=== PATIENT | male | born 1955 | race American Indian/Alaskan Native ===

== ENCOUNTER 2017-07-29 17:35 | Emergency (ER) | payer MEDICARE ==
[2017-07-29] MEDS ORDERED: ALUM-MAG HYDROX-SIMETH 200-200-20MG/5ML ONE (18:22)
[2017-07-29] MEDS ORDERED: ASPIRIN PO ONE (18:25)
[2017-07-29 19:20] LABS: BUN/Creatinine Ratio 21; Blood Urea Nitrogen 15 mg/dL (9-20); Calcium 8.4 mg/dL (8.4-10.2); Hemolysis Index 9
[2017-07-29 19:37] LABS: Basophils % (Auto) 0.7 % (0.0-1.8); Eosinophils # (Auto) 0.2 K/mm3 (0.0-0.4); Eosinophils % (Auto) 3.8 % (0.0-4.3); Hematocrit 38.2 % (35.5-45.6); Hemoglobin 12.5 gm/dl (11.8-15.2); Lymphocytes # (Auto) 0.7 K/mm3 (1.2-5.4); Lymphocytes % (Auto) 15.5 % (13.4-35.0); Mean Corpuscular HGB Conc 33 % (32-34); Mean Corpuscular Hemoglobin 33 pg (28-32); Mean Corpuscular Volume 100 fl (84-94); Monocytes # (Auto) 0.6 K/mm3 (0.0-0.8); Monocytes % (Auto) 12.8 % (0.0-7.3); Platelet Count 247 K/mm3 (140-440); Red Blood Count 3.83 M/mm3 (3.65-5.03); Red Cell Distribution Width 17.7 % (13.2-15.2)
[2017-07-29 19:45] LABS: Creatine Kinase MB 1.5 ng/mL (0.0-4.0)
--- NOTE | 2017-07-29 19:52 | XRay Report ---
FINAL REPORT EXAM: XR CHEST 1V AP HISTORY: cp TECHNIQUE: Frontal chest x-ray Comparison: None FINDINGS: The hemithorax is distorted, question pectus deformity. Heart size is normal. The aortic arch is aneurysmal measuring at least 5 centimeters. Pulmonary arteries are prominent bilaterally. Lungs are mildly hyperlucent with flattened hemidiaphragms and hyperexpanded compatible with emphysema. There are no focal infiltrates. Costophrenic angles are sharp laterally. There is no pneumothorax. There is a clip projecting over the right lower neck. IMPRESSION: Emphysema. Aortic aneurysm incompletely assessed. Prominent pulmonary arteries. No definite pneumonia.
[2017-07-29] MEDS ORDERED: BENADRYL PO ONE (19:53)
[2017-07-29] MEDS ORDERED: TESSALON PERLES PO ONE (19:53)
[2017-07-29] MEDS ORDERED: ZITHROMAX PO ONE (20:00)
--- NOTE | 2017-07-29 20:35 | Emergency Department Report ---
ED Chest Pain HPI - General Chief Complaint: Chest Pain Stated Complaint: CHEST PAIN Source: patient, EMS Mode of arrival: Stretcher Limitations: No Limitations - History of Present Illness Initial Comments: 61-year-old male with a past medical history hypertension, depression, schizophrenia, and polysubstance abuse presents to the hospital with complaints of cough and cold symptoms and chest pain. PT has had a cough for the past 2-3 days productive of yellow sputum. Patient has been at [facility] 1 week for substance abuse and is upset that he has been treated properly for his cold symptoms. He complains of pain going across his chest that started last night. Pain was aching, constant, worse with cough. Pain currently recessed intensity. Patient denies shortness of breath. Unsure if he's had a fever. Patient reports that he had a stress test 6 months ago was to his knowledge was okay. He was not informed that he had a heart attack and did not require a cardiac cath at that time. He has chronic intermittent right leg edema secondary to previous right leg fracture. Patient presents with a Doppler report of the right lower extremity that was performed yesterday that was negative for acute DVT. Patient presents with a sitter but he is not a 1013 Severity scale (0 -10): 0 - Related Data Previous Rx's Medication Instructions Recorded Last Taken Type Ibuprofen [Motrin] 800 mg PO Q8HR PRN #30 tablet 07/29/17 Unknown Rx Sodium Chloride [Saline Nasal 1 - 2 sprays NS PRN PRN #1 bottle 07/29/17 Unknown Rx [place]] diphenhydrAMINE [Benadryl CAP] 25 mg PO Q6HR PRN #30 capsule 07/29/17 Unknown Rx guaiFENesin/DEXTROMETHORPHAN 1 each PO BID #20 tab.er.12h 07/29/17 Unknown Rx [Mucinex Dm ER 1,200-60 mg Tab] Allergies Allergy/AdvReac Type Severity Reaction Status Date / Time No Known Allergies Allergy Unverified 07/29/17 18:24 Heart Score - HEART Score History: Slightly suspicious EKG: Non-specific Age: 45-65 Risk factors: 1-2 risk factors Troponin: < normal limit HEART Score: 3 ED Review of Systems ROS: Stated complaint: CHEST PAIN Other details as noted in HPI Comment: All other systems reviewed and negative Other: Constitutional: No fevers chills Eyes: No eye pain visual changes ENT: No ear pain or throat pain Neck: Denies pain Respiratory:as per hpi Cardiovascular: Denies palpitations, syncope GI: Denies abdominal pain, nausea, vomiting, diarrhea : Denies dysuria, urinary frequency, or urgency Musculoskeletal: Denies back pain, joint swelling Skin: Denies rash, lesions, erythema Neurologic: Denies headache, numbness, weakness ED Past Medical Hx - Past Medical History Previous Medical History?: Yes Hx Hypertension: Yes Hx Psychiatric Treatment: Yes (depression, polysubstance abuse, SI) - Surgical History Past Surgical History?: Yes Additional Surgical History: RLE fracture - Social History Smoking Status: Current Every Day Smoker Substance Use Type: Alcohol, Cocaine - Medications Home Medications: Home Medications Medication Instructions Recorded Confirmed Last Taken Type Ibuprofen [Motrin] 800 mg PO Q8HR PRN #30 tablet 07/29/17 Unknown Rx Sodium Chloride [Saline Nasal 1 - 2 sprays NS PRN PRN #1 bottle 07/29/17 Unknown Rx [place]] diphenhydrAMINE [Benadryl CAP] 25 mg PO Q6HR PRN #30 capsule 07/29/17 Unknown Rx guaiFENesin/DEXTROMETHORPHAN 1 each PO BID #20 tab.er.12h 07/29/17 Unknown Rx [Mucinex Dm ER 1,200-60 mg Tab] ED Physical Exam - General Limitations: No Limitations - Other Other exam information: General: No limitations, patient is alert in no acute distress Head exam: Atraumatic, normocephalic Eyes exam: Normal appearance, pupils equal reactive to light, extraocular movements intact ENT: Moist mucous membrane, normal oropharynx Neck exam: Normal inspection Respiratory exam: Clear to auscultation bilateral, no wheezes, rales, crackles Cardiovascular: Normal rate and rhythm, chest wall nontender Abdomen: Soft, nondistended, and nontender, with normal bowel sounds, no rebound, or guarding Extremity: Right lower leg edema and warmth without erythema greater than the left. No calf tenderness Back: Normal Inspection, full range of motion, no tenderness Neurologic: Alert, oriented x3, cranial nerves intact, no motor or sensory deficit Psychiatric: normal affect, normal mood Skin: Warm, dry, intact ED Course Vital Signs 07/29/17 07/29/17 07/29/17 18:17 18:57 19:49 Temperature 99 F Pulse Rate 86 81 Respiratory 16 16 18 Rate Blood Pressure 127/84 Blood Pressure 120/81 [Left] O2 Sat by Pulse 98 97 Oximetry - Reevaluation(s) Reevaluation #1: 07/29/17 22:[address] scan Patient refused repeat cardiac enzyme redraw EVA score - Eva Score Age > 65: (0) No Aspirin use within the Past 7 Days: (0) No 3 or more CAD Risk Factors: (0) No 2 or more Angina events in past 24 hrs: (1) Yes Known CAD with more than 50% Stenosis: (0) No Elevated Cardiac Markers: (0) No ST Deviation Greater than 0.5mm: (0) No EVA Score: 1 ED Medical Decision Making - Lab Data Result diagrams: 07/29/17 19:02 07/29/17 18:50 Lab Results 07/29/17 07/29/17 07/29/17 Range/Units 18:50 18:50 19:02 WBC 4.4 L (4.5-11.0) K/mm3 RBC 3.83 (3.65-5.03) M/mm3 Hgb 12.5 (11.8-15.2) gm/dl Hct 38.2 (35.5-45.6) % MCV 100 H (84-94) fl MCH 33 H (28-32) pg MCHC 33 (32-34) % RDW 17.7 H (13.2-15.2) % Plt Count 247 (140-440) K/mm3 Lymph % (Auto) 15.5 (13.4-35.0) % [place] % (Auto) 12.8 H (0.0-7.3) % Eos % (Auto) 3.8 (0.0-4.3) % Baso % (Auto) 0.7 (0.0-1.8) % Lymph # 0.7 L (1.2-5.4) K/mm3 [place] # 0.6 (0.0-0.8) K/mm3 Eos # 0.2 (0.0-0.4) K/mm3 Baso # 0.0 (0.0-0.1) K/mm3 Seg Neutrophils % 67.2 (40.0-70.0) % Seg Neutrophils # 2.9 (1.8-7.7) K/mm3 Sodium 139 (137-145) mmol/L Potassium 4.1 (3.6-5.0) mmol/L Chloride 101.7 (98-107) mmol/L Carbon Dioxide 24 (22-30) mmol/L Anion Gap 17 mmol/L BUN 15 (9-20) mg/dL Creatinine 0.7 L (0.8-1.5) mg/dL Estimated GFR > 60 ml/min BUN/Creatinine Ratio 21 % Glucose 103 H (75-100) mg/dL Calcium 8.4 (8.4-10.2) mg/dL Total Creatine Kinase 91 (55-170) units/L CK-MB (CK-2) 1.5 (0.0-4.0) ng/mL CK-MB (CK-2) Rel Index 1.6 (0-4) Troponin T < 0.010 (0.00-0.029) ng/mL Urine Opiates Screen Urine Methadone Screen Ur Barbiturates Screen Ur Phencyclidine Scrn Ur Amphetamines Screen U Benzodiazepines Scrn Urine Cocaine Screen U Marijuana (THC) Screen Drugs of Abuse Note 07/29/17 Range/Units Unknown WBC (4.5-11.0) K/mm3 RBC (3.65-5.03) M/mm3 Hgb (11.8-15.2) gm/dl Hct (35.5-45.6) % MCV (84-94) fl MCH (28-32) pg MCHC (32-34) % RDW (13.2-15.2) % Plt Count (140-440) K/mm3 Lymph % (Auto) (13.4-35.0) % [place] % (Auto) (0.0-7.3) % Eos % (Auto) (0.0-4.3) % Baso % (Auto) (0.0-1.8) % Lymph # (1.2-5.4) K/mm3 [place] # (0.0-0.8) K/mm3 Eos # (0.0-0.4) K/mm3 Baso # (0.0-0.1) K/mm3 Seg Neutrophils % (40.0-70.0) % Seg Neutrophils # (1.8-7.7) K/mm3 Sodium (137-145) mmol/L Potassium (3.6-5.0) mmol/L Chloride (98-107) mmol/L Carbon Dioxide (22-30) mmol/L Anion Gap mmol/L BUN (9-20) mg/dL Creatinine (0.8-1.5) mg/dL Estimated GFR ml/min BUN/Creatinine Ratio % Glucose (75-100) mg/dL Calcium (8.4-10.2) mg/dL Total Creatine Kinase (55-170) units/L CK-MB (CK-2) (0.0-4.0) ng/mL CK-MB (CK-2) Rel Index (0-4) Troponin T (0.00-0.029) ng/mL Urine Opiates Screen Presumptive negative Urine Methadone Screen Presumptive negative Ur Barbiturates Screen Presumptive negative Ur Phencyclidine Scrn Presumptive negative Ur Amphetamines Screen Presumptive negative U Benzodiazepines Scrn Presumptive negative Urine Cocaine Screen Presumptive positive U Marijuana (THC) Screen Presumptive negative Drugs of Abuse Note Disclamer - EKG Data -: EKG Interpreted by Ma EKG shows normal: sinus rhythm, axis (84), QRS complexes (87), ST-T waves (lvh lat flat t waves) Rate: normal (83) - EKG Data When compared to previous EKG there are: previous EKG unavailable - Radiology Data Radiology results: report reviewed CT angiogram chest: No acute process Aneurysm dilatation of the ascending and proximal descending aorta without evidence of dissection. - Medical Decision Making I cannot completely medically clear patient due to refusal for second cardiac enzymes Pain sounds atypical and likely related to his respiratory illness Incidental findings of aneurysmal dilatation of aorta without acute dissection, no PE, no infiltrate identified Patient has persistent positive cocaine on UDS Patient she is symptomatic for URI symptoms antibiotics not indicated at this time given negative CT angiogram chest Outpatient follow-up with vascular for continue monitoring of aneurysm dilatation of aorta will be provided. Patient treated with Toradol and Tessalon Perles and 1 dose of azithromycin in the ED. I explained that further antibiotics are not indicated this to lack of pneumonia - Differential Diagnosis mi, unstable angina, pe, bronchitis, pneumonia, uri Critical Care Time: No Critical care attestation.: If time is entered above; I have spent that time in minutes in the direct care of this critically ill patient, excluding procedure time. ED Disposition Clinical Impression: Atypical chest pain, URI (upper respiratory infection) Aortic aneurysm Qualifiers: Aortic location: thoracic aorta Disposition: TO HOME OR SELFCARE Is pt being admited?: No Does the pt Need Aspirin: No Condition: Stable Instructions: Upper Respiratory Infection (ED), Chest Pain (ED), Thoracic Aortic Aneurysm (ED), Cocaine Abuse (ED) Additional Instructions: You are signing out AGAINST MEDICAL ADVICE because you refused your second cardiac set of enzymes to further rule out any primary heart disease/heart attack during your ER presentation. CAT scan was performed and does not reveal a pneumonia therefore further antibiotic treatment is not indicated. You will be treated symptomatically for cold symptoms. Follow up with your primary care doctor or the doctor provided. Follow up with the vascular doctor for further monitoring seeing other aortic aneurysm. Return if symptoms worsen as indicated by your discharge instructions Prescriptions: diphenhydrAMINE [Benadryl CAP] 25 mg PO Q6HR PRN #30 capsule PRN Reason: Itching guaiFENesin/DEXTROMETHORPHAN [Mucinex Dm ER 1,200-60 mg Tab] 1 each PO BID #20 tab.er.12h Ibuprofen [Motrin] 800 mg PO Q8HR PRN #30 tablet PRN Reason: Pain Sodium Chloride [Saline Nasal [place]] 1 - 2 sprays NS PRN PRN #1 bottle PRN Reason: Nasal Congestion Referrals: PRIMARY CARE,MD [Primary Care Provider] - 3-5 Days [facility] [Provider Group] - 3-5 Days (vascular doctors for monitoring of aorta anuerysm ) Forms: AMA Form Time of Disposition: 23:02
[2017-07-29 21:12] LABS: Amphetamine Screen,Urine PRESUMPTIVE NEGATIVE; Benzodiazepines Screen,Urine PRESUMPTIVE NEGATIVE; Cannabinoid Screen,Urine PRESUMPTIVE NEGATIVE; Methadone Screen,Urine PRESUMPTIVE NEGATIVE; Opiate Screen,Urine PRESUMPTIVE NEGATIVE
[2017-07-29] MEDS ORDERED: TORADOL IV ONE (21:21)
[2017-07-29 21:25] LABS: Cocaine Screen,Urine PRESUMPTIVE POSITIVE
--- NOTE | 2017-07-29 22:35 | Cat Scan Report ---
FINAL REPORT PROCEDURE: CT ANGIO CHEST TECHNIQUE: Computerized tomographic angiography of the chest was performed after the IV injection of iodinated nonionic contrast including image processing. The image data was postprocessed using 2-dimensional multiplanar reformatted (MPR) and 3-dimensional (MIP and/or volume rendered) techniques. HISTORY: aneurysm dilitation of aorta, cough, cp COMPARISON: No prior studies are available for comparison. FINDINGS: Heart and pericardium: Mild cardiomegaly is noted. Thoracic aorta: Ascending aorta measures 3.9 centimeters in diameter and descending aorta measures 3.5 centimeters in maximal diameter. There is no evidence of dissection.. Pulmonary vasculature: Normal. Lymph nodes: No enlarged thoracic lymph nodes. Lungs: Normal. Pleural space: No effusion, thickening, or pneumothorax. Musculoskeletal structures: No significant abnormality. Upper abdominal structures: Gallbladder is contracted which is most likely secondary to postprandial status.. IMPRESSION: No acute pulmonary process. Aneurysmal dilatation of the ascending and the proximal descending aorta without evidence of dissection.
[2017-07-29 23:53] VITALS: BP 137/84
== END 2017-07-30 00:41 | disposition home or self-care (01) ==
LOC: ED 17:35
DX: J06.9 Acute upper respiratory infection, unspecified (principal); R07.89 Other chest pain; I71.9 Aortic aneurysm of unspecified site, without rupture; I10 Essential (primary) hypertension; F17.200 Nicotine dependence, unspecified, uncomplicated
CPT/HCPCS: 36415; 71045; 71275; 80048; 80307; 82550; 82553; 84484; 85025; 93005; 93010; 96374; 99285; J1885; Q9967

== ENCOUNTER 2017-08-29 15:11 | Emergency (ER) | payer MEDICARE ==
[2017-08-29 15:24] VITALS: BP 144/85
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
== END 2017-08-29 16:43 | disposition home or self-care (01) ==
LOC: ED 15:11
DX: I89.0 Lymphedema, not elsewhere classified (principal); B17.10 Acute hepatitis C without hepatic coma; I10 Essential (primary) hypertension; F17.200 Nicotine dependence, unspecified, uncomplicated
CPT/HCPCS: 99282

== ENCOUNTER 2019-03-20 13:55 | Emergency (ER) | payer MEDICARE ==
[2019-03-20] MEDS ORDERED: BENADRYL PO ONE (15:50)
--- NOTE | 2019-03-20 15:55 | Emergency Department Report ---
- General Chief complaint: Skin Rash Stated complaint: RASH BREAKOUT/GENTIALS AREA Time Seen by Provider: 03/20/19 15:16 Source: patient Mode of arrival: Ambulatory Limitations: No Limitations - History of Present Illness Initial comments: Patient is a 63-year-old male presents emergency room with complaints of a rash that began a week ago. He states he has a rash to the bilateral upper extremities. States he also has a rash to his lower abdomen. he states it is itching. He states he has had this before. He states he has been using Vaseline and alcohol. Patient denies any allergies to medications. - Related Data Previous Rx's Medication Instructions Recorded Last Taken Type Ibuprofen [Motrin] 800 mg PO Q8HR PRN #30 tablet 07/29/17 Unknown Rx Sodium Chloride [Saline Nasal 1 - 2 sprays NS PRN PRN #1 bottle 07/29/17 Unknown Rx [place]] diphenhydrAMINE [Benadryl CAP] 25 mg PO Q6HR PRN #30 capsule 07/29/17 Unknown Rx guaiFENesin/DEXTROMETHORPHAN 1 each PO BID #20 tab.er.12h 07/29/17 Unknown Rx [Mucinex Dm ER 1,200-60 mg Tab] Furosemide [Lasix TAB] 40 mg PO QDAY #30 tablet 08/29/17 Unknown Rx Clotrimazole 1% [Lotrimin 1%] 1 applic TP BID #1 tube 03/20/19 Unknown Rx Hydrocortisone [Hydrocortisone 1 applicatio TP TID 7 Days #1 03/20/19 Unknown Rx 2.5% OINT] oint...g. diphenhydrAMINE [Benadryl CAP] 50 mg PO Q8HR PRN #14 capsule 03/20/19 Unknown Rx Allergies Allergy/AdvReac Type Severity Reaction Status Date / Time No Known Allergies Allergy Unverified 07/29/17 18:24 Abscess Boil HPI - HPI Chief Complaint: Skin Rash Stated Complaint: RASH BREAKOUT/GENTIALS AREA Time Seen by Provider: 03/20/19 15:16 Home Medications: Previous Rx's Medication Instructions Recorded Last Taken Type Ibuprofen [Motrin] 800 mg PO Q8HR PRN #30 tablet 07/29/17 Unknown Rx Sodium Chloride [Saline Nasal 1 - 2 sprays NS PRN PRN #1 bottle 07/29/17 Unknown Rx [place]] diphenhydrAMINE [Benadryl CAP] 25 mg PO Q6HR PRN #30 capsule 07/29/17 Unknown Rx guaiFENesin/DEXTROMETHORPHAN 1 each PO BID #20 tab.er.12h 07/29/17 Unknown Rx [Mucinex Dm ER 1,200-60 mg Tab] Furosemide [Lasix TAB] 40 mg PO QDAY #30 tablet 08/29/17 Unknown Rx Clotrimazole 1% [Lotrimin 1%] 1 applic TP BID #1 tube 03/20/19 Unknown Rx Hydrocortisone [Hydrocortisone 1 applicatio TP TID 7 Days #1 03/20/19 Unknown Rx 2.5% OINT] oint...g. diphenhydrAMINE [Benadryl CAP] 50 mg PO Q8HR PRN #14 capsule 03/20/19 Unknown Rx Allergies/Adverse Reactions: Allergies Allergy/AdvReac Type Severity Reaction Status Date / Time No Known Allergies Allergy Unverified 07/29/17 18:24 ED Review of Systems ROS: Stated complaint: RASH BREAKOUT/GENTIALS AREA Other details as noted in HPI Comment: All other systems reviewed and negative ED Past Medical Hx - Past Medical History Hx Hypertension: Yes Hx Psychiatric Treatment: Yes (depression, polysubstance abuse, SI) - Surgical History Additional Surgical History: RLE fracture - Social History Smoking Status: Never Smoker Substance Use Type: None - Medications Home Medications: Home Medications Medication Instructions Recorded Confirmed Last Taken Type Ibuprofen [Motrin] 800 mg PO Q8HR PRN #30 tablet 07/29/17 Unknown Rx Sodium Chloride [Saline Nasal 1 - 2 sprays NS PRN PRN #1 bottle 07/29/17 Unknown Rx [place]] diphenhydrAMINE [Benadryl CAP] 25 mg PO Q6HR PRN #30 capsule 07/29/17 Unknown Rx guaiFENesin/DEXTROMETHORPHAN 1 each PO BID #20 tab.er.12h 07/29/17 Unknown Rx [Mucinex Dm ER 1,200-60 mg Tab] Furosemide [Lasix TAB] 40 mg PO QDAY #30 tablet 08/29/17 Unknown Rx Clotrimazole 1% [Lotrimin 1%] 1 applic TP BID #1 tube 03/20/19 Unknown Rx Hydrocortisone [Hydrocortisone 1 applicatio TP TID 7 Days #1 03/20/19 Unknown Rx 2.5% OINT] oint...g. diphenhydrAMINE [Benadryl CAP] 50 mg PO Q8HR PRN #14 capsule 03/20/19 Unknown Rx ED Physical Exam - General Limitations: No Limitations General appearance: alert, in no apparent distress - Head Head exam: Present: atraumatic, normocephalic - Eye Eye exam: Present: normal appearance - Neurological Exam Neurological exam: Present: alert, oriented X3 - Psychiatric Psychiatric exam: Present: normal affect, normal mood - Skin Skin exam: Present: warm, dry, intact, rash (small skin colored papules present to the bilateral UE on the flexor surface, also small amount of erythema present to the pannus of the abdomen) ED Course Vital Signs 03/20/19 03/20/19 14:00 16:20 Temperature 98.0 F Pulse Rate 74 71 Respiratory 15 16 Rate Blood Pressure 140/90 136/84 [Left] O2 Sat by Pulse 97 100 Oximetry ED Medical Decision Making - Medical Decision Making Patient is a 63-year-old male presents emergency room with complaints of a rash that began a week ago. He states he has a rash to the bilateral upper extremities. States he also has a rash to his lower abdomen. he states it is itching. He states he has had this before. He states he has been using Vaseline and alcohol. Patient denies any allergies to medications. on exam: small skin colored papules present to the bilateral UE on the flexor surface, also small amount of erythema present to the pannus of the abdomen. pt denies any rash on the genitals, the rash is on the pannus. examination appears consistent with ezcema and tinea. pt given two ointments. advised pt to please use medication as prescribed. Follow-up with a primary care doctor in the next 2-3 days. Return to the emergency room for any new or worsening symptoms. - Differential Diagnosis contact derm, tinea, irritant derm, allergic rx, eczema Critical care attestation.: If time is entered above; I have spent that time in minutes in the direct care of this critically ill patient, excluding procedure time. ED Disposition Clinical Impression: Rash Disposition: - TO HOME OR SELFCARE Is pt being admited?: No Does the pt Need Aspirin: No Condition: Stable Instructions: Eczema (ED), Tinea Corporis (ED) Additional Instructions: Please use medication as prescribed. Follow-up with a primary care doctor in the next 2-3 days. Return to the emergency room for any new or worsening symptoms. Prescriptions: diphenhydrAMINE [Benadryl CAP] 50 mg PO Q8HR PRN #14 capsule PRN Reason: itching Hydrocortisone [Hydrocortisone 2.5% OINT] 1 applicatio TP TID 7 Days #1 oint...g. Clotrimazole 1% [Lotrimin 1%] 1 applic TP BID #1 tube Referrals: PRIMARY CARE, [Primary Care Provider] - 2-3 Days Time of Disposition: 15:53 Print Language: [id number]
[2019-03-20 16:22] VITALS: BP 136/84
== END 2019-03-20 16:20 | disposition home or self-care (01) ==
LOC: ED 13:55
DX: R21 Rash and other nonspecific skin eruption (principal); I10 Essential (primary) hypertension; F32.9 Major depressive disorder, single episode, unspecified
CPT/HCPCS: 99282

== ENCOUNTER 2019-04-06 09:41 | Emergency (ER) | payer MEDICARE ==
[2019-04-06] MEDS ORDERED: IBUPROFEN 800 MG TAB PO ONE (10:53)
--- NOTE | 2019-04-06 10:58 | Emergency Department Report ---
ED Extremity Problem HPI - General Chief complaint: Pain General Stated complaint: BODYACHES/DISCOMFORT Time Seen by Provider: 04/06/19 10:48 Source: patient Mode of arrival: Ambulatory Limitations: No Limitations - History of Present Illness Initial comments: 63-year-old male with a past medical history of bipolar disorder, hypertension, polysubstance abuse, chronic back pain and right leg pain secondary to previous injury in 1998 presents to the hospital with complaints of right leg and lower back pain rated 8/10 in intensity. Pain is aching, throbbing, constant, worsened movement and palpation. Patient states he continues to have intermittent right leg swelling that worsens when he is standing up for a long time. He admits to not being compliant with his recommended compression stockings. Patient denies concern for DVT and states he has had multiple negative ultrasounds in the past and does not feel like he needs another one. He denies shortness of breath, fever, weakness, new injury, or numbness. He is requesting Motrin 800 mg for pain. Patient is currently enrolled in a 28 day program at [facility]. - Related Data Previous Rx's Medication Instructions Recorded Last Taken Type Ibuprofen [Motrin] 800 mg PO Q8HR PRN #30 tablet 07/29/17 Unknown Rx Sodium Chloride [Saline Nasal 1 - 2 sprays NS PRN PRN #1 bottle 07/29/17 Unknown Rx [place]] diphenhydrAMINE [Benadryl CAP] 25 mg PO Q6HR PRN #30 capsule 07/29/17 Unknown Rx guaiFENesin/DEXTROMETHORPHAN 1 each PO BID #20 tab.er.12h 07/29/17 Unknown Rx [Mucinex Dm ER 1,200-60 mg Tab] Furosemide [Lasix TAB] 40 mg PO QDAY #30 tablet 08/29/17 Unknown Rx Clotrimazole 1% [Lotrimin 1%] 1 applic TP BID #1 tube 03/20/19 Unknown Rx Hydrocortisone [Hydrocortisone 1 applicatio TP TID 7 Days #1 03/20/19 Unknown Rx 2.5% OINT] oint...g. diphenhydrAMINE [Benadryl CAP] 50 mg PO Q8HR PRN #14 capsule 03/20/19 Unknown Rx Ibuprofen [Motrin] 800 mg PO Q8HR PRN #30 tablet 09/29/19 Unknown Rx Allergies Allergy/AdvReac Type Severity Reaction Status Date / Time No Known Allergies Allergy Unverified 07/29/17 18:24 ED Review of Systems ROS: Stated complaint: BODYACHES/DISCOMFORT Other details as noted in HPI Comment: All other systems reviewed and negative ED Past Medical Hx - Past Medical History Previous Medical History?: Yes Hx Hypertension: Yes Hx Psychiatric Treatment: Yes (depression, polysubstance abuse, SI) Additional medical history: Bipolar - Surgical History Past Surgical History?: Yes Additional Surgical History: RLE fracture - Social History Smoking Status: Current Every Day Smoker Substance Use Type: Alcohol - Medications Home Medications: Home Medications Medication Instructions Recorded Confirmed Last Taken Type Ibuprofen [Motrin] 800 mg PO Q8HR PRN #30 tablet 07/29/17 Unknown Rx Sodium Chloride [Saline Nasal 1 - 2 sprays NS PRN PRN #1 bottle 07/29/17 U nknown Rx [place]] diphenhydrAMINE [Benadryl CAP] 25 mg PO Q6HR PRN #30 capsule 07/29/17 Unknown Rx guaiFENesin/DEXTROMETHORPHAN 1 each PO BID #20 tab.er.12h 07/29/17 Unknown Rx [Mucinex Dm ER 1,200-60 mg Tab] Furosemide [Lasix TAB] 40 mg PO QDAY #30 tablet 08/29/17 Unknown Rx Clotrimazole 1% [Lotrimin 1%] 1 applic TP BID #1 tube 03/20/19 Unknown Rx Hydrocortisone [Hydrocortisone 1 applicatio TP TID 7 Days #1 03/20/19 Unknown Rx 2.5% OINT] oint...g. diphenhydrAMINE [Benadryl CAP] 50 mg PO Q8HR PRN #14 capsule 03/20/19 Unknown Rx Ibuprofen [Motrin] 800 mg PO Q8HR PRN #30 tablet 04/06/19 Unknown Rx ED Physical Exam - General Limitations: No Limitations - Other Other exam information: Gen.: No acute distress Head: Atraumatic Eyes: Normal appearance ENT: Moist mucous membranes Neck: Normal appearance, no posterior midline tenderness, no meningismus Chest: Clear to auscultation bilaterally Cardiovascular: Regular rate and rhythm Abdomen: Normal appearance, soft, nontender, no rebound or guarding, normal bowel sounds Back: Normal appearance, diffuse lower back tenderness Extremity: Full range of motion, right leg swollen with dilated superficial veins compared to the left. Diffuse tenderness along leg and knee. Arm 30 erythema. Neuro: Alert and oriented 3, clear speech, no focal motor or sensory deficit Psychiatric: Appropriate Skin: No rash ED Course Vital Signs 04/06/19 09:45 Temperature 98.1 F Pulse Rate 71 Respiratory 18 Rate Blood Pressure 172/96 O2 Sat by Pulse 99 Oximetry ED Medical Decision Making - Medical Decision Making Patient declined offer for Doppler ultrasound stating his swelling is chronic and he is not concerned for DVT. Patient provided Motrin 800 mg for his chronic pain and meds will be prescribed. Follow-up encouraged. - Differential Diagnosis right leg edema, arthritis, DVT, chronic pain Critical Care Time: No Critical care attestation.: If time is entered above; I have spent that time in minutes in the direct care of this critically ill patient, excluding procedure time. ED Disposition Clinical Impression: Chronic leg pain, Acute exacerbation of chronic low back pain Disposition: TO HOME OR SELFCARE Is pt being admited?: No Does the pt Need Aspirin: No Condition: Stable Instructions: Arthralgia (ED), Chronic Back Pain (ED) Additional Instructions: Take the medication as prescribed. Follow-up with your doctor or with the doctor/clinic provided. Return if symptoms worsen as indicated by your discharge instructions. Prescriptions: Ibuprofen [Motrin] 800 mg PO Q8HR PRN #30 tablet PRN Reason: Pain , Severe (7-10) Referrals: PRIMARY CAREMD [Primary Care Provider] - 3-5 Days ABBY GONG MD [Staff Physician] - 3-5 Days (Orthopedic) [facility] [Provider Group] - 3-5 Days Time of Disposition: 10:59
[2019-04-06 11:14] VITALS: BP 121/87
== END 2019-04-06 11:19 | disposition home or self-care (01) ==
LOC: ED 09:41
DX: G89.29 Other chronic pain (principal); M54.5 Low back pain; M79.606 Pain in leg, unspecified; I10 Essential (primary) hypertension; F31.9 Bipolar disorder, unspecified; F17.200 Nicotine dependence, unspecified, uncomplicated; Z98.890 Other specified postprocedural states; Z79.899 Other long term (current) drug therapy

== ENCOUNTER 2020-04-10 14:24 | Emergency (ER) | payer MEDICARE ==
[2020-04-10 14:37] VITALS: BP 163/93
--- NOTE | 2020-04-10 15:04 | Emergency Department Report ---
Chief Complaint: Extremity Problem,Nontraumatic Stated Complaint: RT LEG PAIN/ITCHY ALL OVER Time Seen by Provider: 04/10/20 15:03 - HPI History of Present Illness: 64-year-old -Citizen Of [place] male presents to the emergency room complaining of right leg pain since 1998. Patient is requesting pain medication. Patient denies any recent injury. Patient states that in the morning his foot is fine and as he walks throughout the day the swelling presents. This is been going on since 1998. Patient denies any fever chills no shortness of breath chest pain. - Exam Vital Signs: Vital Signs 04/10/20 14:36 Temperature 98.2 F Pulse Rate 72 Respiratory 18 Rate Blood Pressure 163/93 [Right] O2 Sat by Pulse 97 Oximetry Physical Exam: Patient is alert and oriented x3 no acute distress nontoxic in appearance Right leg swelling nonerythematous no acute changes. Full range of motion. Patient is ambulatory without difficulties. MSE screening note: Focused history and physical exam performed. Due to findings the following was ordered: 64-year-old -Citizen Of [place] male presents to the emergency room complaining of right leg pain since 1998. Patient is requesting pain medication. Patient denies any recent injury. Patient states that in the morning his foot is fine and as he walks throughout the day the swelling presents. This is been going on since 1998. Patient denies any fever chills no shortness of breath chest pain. Discussed with patient that he can take [id number] ibuprofen or Tylenol for pain management. I instructed patient we do not give narcotics for chronic pain and that he can follow-up with his primary care provider or outpatient pain management clinic. ED Disposition for MSE Clinical Impression: Chronic leg pain Disposition: Z-07 MED SCREENING EXAM-LEFT Is pt being admited?: No Does the pt Need Aspirin: No Condition: Stable Additional Instructions: Try taking Tylenol 650 mg every 6-8 hours or ibuprofen 200 mg take 4 pills every 6-8 hours. Follow-up with your primary care provider or pain management provider. Referrals: MAGDA REED MD [Staff Physician] - 3-5 Days [facility] [Provider Group] - 3-5 Days [facility]IN [facility]ARE, [facility] [Provider Group] - 3-5 Days Forms: Work/School Release Form(ED)
== END 2020-04-10 16:32 | disposition left against medical advice (07) ==
LOC: ED 14:24
DX: M79.604 Pain in right leg (principal); G89.29 Other chronic pain; Z53.21 Procedure and treatment not carried out due to patient leaving prior to being seen by health care provider

== ENCOUNTER 2021-07-23 04:45 | Emergency (ER) | payer MEDICARE | END 2021-07-23 06:15 | disposition left against medical advice (07) | LOC: ED 04:45 | DX: R07.9 Chest pain, unspecified (principal); Z53.21 Procedure and treatment not carried out due to patient leaving prior to being seen by health care provider ==

== ENCOUNTER 2021-08-07 03:06 | Emergency (ER) | payer MEDICARE ==
[2021-08-07 03:30] VITALS: BP 143/78
--- NOTE | 2021-08-07 04:00 | Emergency Department Report ---
<VENANCIO POLLACK - Last Filed: 08/07/21 03:56> ED Psych HPI - General Chief Complaint: Psych Stated Complaint: CHEST PAIN/SUICIDAL THOUGHTS Time Seen by Provider: 08/07/21 03:52 Source: patient Mode of arrival: Ambulatory - History of Present Illness Initial Comments: 65-year-old -Al[place] male with a past medical history of chronic leg pain, polar disorder, hypertension, polysubstance abuse, chronic back pain presents emergency department complaining of continued field down due to his 's having thoughts of suicide. States he was recently at [facility] and was just to return and plan of shooting himself or other methods of home but reports no hallucinations. Reports no nausea, no vomiting no hemoptysis hematemesis hematochezia, no recent head trauma. He is adamant that he is not well and seeks to be admitted to a mental health facility and presents to the hospital with many of his belongings in a shopping bag and plastic bags MD Complaint: suicidal ideation, feels depressed - Related Data Previous Rx's Medication Instructions Recorded Last Taken Type Ibuprofen [Motrin] 800 mg PO Q8HR PRN #30 tablet 07/29/17 Unknown Rx Sodium Chloride [Saline Nasal 1 - 2 sprays NS PRN PRN #1 bottle 07/29/17 Unknown Rx [place]] diphenhydrAMINE [Benadryl CAP] 25 mg PO Q6HR PRN #30 capsule 07/29/17 Unknown Rx guaiFENesin/DEXTROMETHORPHAN 1 each PO BID #20 tab.er.12h 07/29/17 Unknown Rx [Mucinex Dm ER 1,200-60 mg Tab] Furosemide [Lasix TAB] 40 mg PO QDAY #30 tablet 08/29/17 Unknown Rx Clotrimazole 1% [Lotrimin 1%] 1 applic TP BID #1 tube 03/20/19 Unknown Rx Hydrocortisone [Hydrocortisone 1 applicatio TP TID 7 Days #1 03/20/19 Unknown Rx 2.5% OINT] oint...g. diphenhydrAMINE [Benadryl CAP] 50 mg PO Q8HR PRN #14 capsule 03/20/19 Unknown Rx Ibuprofen [Motrin] 800 mg PO Q8HR PRN #30 tablet 04/06/19 Unknown Rx Allergies Allergy/AdvReac Type Severity Reaction Status Date / Time No Known Allergies Allergy Unverified 07/29/17 18:24 ED Review of Systems Comment: All other systems reviewed and negative ED Past Medical Hx - Past Medical History Previous Medical History?: Yes Hx Hypertension: Yes Hx Psychiatric Treatment: Yes (depression, polysubstance abuse, SI) Additional medical history: Bipolar - Surgical History Past Surgical History?: Yes Additional Surgical History: RLE fracture - Social History Smoking Status: Current Every Day Smoker Substance Use Type: Alcohol, Cocaine, Marijuana - Medications Home Medications: Home Medications Medication Instructions Recorded Confirmed Last Taken Type Ibuprofen [Motrin] 800 mg PO Q8HR PRN #30 tablet 07/29/17 Unknown Rx Sodium Chloride [Saline Nasal 1 - 2 sprays NS PRN PRN #1 bottle 07/29/17 Unknown Rx [place]] diphenhydrAMINE [Benadryl CAP] 25 mg PO Q6HR PRN #30 capsule 07/29/17 Unknown Rx guaiFENesin/DEXTROMETHORPHAN 1 each PO BID #20 tab.er.12h 07/29/17 Unknown Rx [Mucinex Dm ER 1,200-60 mg Tab] Furosemide [Lasix TAB] 40 mg PO QDAY #30 tablet 08/29/17 Unknown Rx Clotrimazole 1% [Lotrimin 1%] 1 applic TP BID #1 tube 03/20/19 Unknown Rx Hydrocortisone [Hydrocortisone 1 applicatio TP TID 7 Days #1 03/20/19 Unknown Rx 2.5% OINT] oint...g. diphenhydrAMINE [Benadryl CAP] 50 mg PO Q8HR PRN #14 capsule 03/20/19 Unknown Rx Ibuprofen [Motrin] 800 mg PO Q8HR PRN #30 tablet 04/06/19 Unknown Rx ED Physical Exam - General Limitations: No Limitations, Other (Initially was not interested in history presenting with excessive amount of mumbling and minimal responses. At the further discussion and process exhalation he disclosed the reason for his being in the emergency department) General appearance: alert, in no apparent distress, other (Strong smells of urine with with many urine stains in his close with with a disheveled a ppearance) - Head Head exam: Present: atraumatic, normocephalic - Eye Eye exam: Present: normal appearance, PERRL, EOMI, other (Tears to the left) Pupils: Present: normal accommodation - ENT ENT exam: Present: normal exam, normal orophraynx, mucous membranes moist, TM's normal bilaterally - Neck Neck exam: Present: normal inspection, full ROM - Respiratory Respiratory exam: Present: normal lung sounds bilaterally. Absent: respiratory distress, wheezes, rales, chest wall tenderness, accessory muscle use - Cardiovascular Cardiovascular Exam: Present: regular rate, normal rhythm. Absent: systolic murmur, diastolic murmur, rubs, gallop - GI/Abdominal GI/Abdominal exam: Present: soft, normal bowel sounds. Absent: distended, tenderness, hyperactive bowel sounds - Rectal Rectal exam: Present: deferred - Extremities Exam Extremities exam: Present: normal inspection, normal capillary refill - Back Exam Back exam: Present: normal inspection. Absent: vertebral tenderness - Neurological Exam Neurological exam: Present: alert, oriented X3, CN II-XII intact - Psychiatric Psychiatric exam: Present: normal affect, depressed, suicidal ideation - Skin Skin exam: Present: warm, dry, intact, normal color, other (Hyperpigmentation scaliness and thickened skin to the hands). Absent: rash ED Disposition Clinical Impression: Chronic schizophrenia Disposition: HOME / SELF CARE / HOMELESS Condition: Stable Referrals: PRIMARY CARE, [Primary Care Provider] - 3-5 Days <CONNIE DAWSON - Last Filed: 08/07/21 04:30> ED Review of Systems ROS: Stated complaint: CHEST PAIN/SUICIDAL THOUGHTS Other details as noted in HPI ED Course Vital Signs 08/07/21 03:24 Temperature 98.3 F Pulse Rate 80 Respiratory 8 L Rate Blood Pressure 143/78 O2 Sat by Pulse 96 Oximetry - Reevaluation(s) Reevaluation #1: 08/07/21 04:29 pt was discharged from [facility] recently no active suicidal ideation Critical care attestation.: If time is entered above; I have spent that time in minutes in the direct care of this critically ill patient, excluding procedure time. ED Disposition Is pt being admited?: No Does the pt Need Aspirin: No
[2021-08-07 06:00] LABS: Basophils # (Auto) 0.1 K/mm3 (0.0-0.1); Basophils % (Auto) 1.3 % (0.0-1.8); Eosinophils # (Auto) 0.3 K/mm3 (0.0-0.4); Eosinophils % (Auto) 7.6 % (0.0-4.3); Hematocrit 41.8 % (35.5-45.6); Hemoglobin 13.6 gm/dl (11.8-15.2); Lymphocytes # (Auto) 1.5 K/mm3 (1.2-5.4); Lymphocytes % (Auto) 38.8 % (13.4-35.0); Mean Corpuscular HGB Conc 33 % (32-34); Mean Corpuscular Volume 94 fl (84-94); Monocytes # (Auto) 0.6 K/mm3 (0.0-0.8); Monocytes % (Auto) 15.2 % (0.0-7.3); Platelet Count 242 K/mm3 (140-440); Red Blood Count 4.45 M/mm3 (3.65-5.03); Red Cell Distribution Width 14.2 % (13.2-15.2)
[2021-08-07 06:20] LABS: Alanine Aminotransferase 22 units/L (7-56); Albumin 3.7 g/dL (3.9-5); Blood Urea Nitrogen 15 mg/dL (9-20); Hemolysis Index 6
[2021-08-07 06:31] LABS: BUN/Creatinine Ratio 21
--- NOTE | 2021-08-07 09:10 | Electrocardiograph Report ---
[facility] Test Date: 2021-08-07 Test Time: 03:47:51 Pat Name: MADI PRATHER JR Department: Room: Gender: M Chartered Accountant: MELLY : 1955 Requested By: ED DOC Order Number: [id number] Reading MD: Allen Mendoza Measurements Intervals Marshall Rate: 72 P: 85 IN: 160 QRS: 95 QRSD: 92 T: -83 QT: 401 QTc: 439 Interpretive Statements Sinus rhythm Biatrial enlargement Right axis deviation Consider left ventricular hypertrophy Abnormal T, consider ischemia, diffuse leads Anterior ST elevation, probably due to LVH No previous ECG available for comparison Electronically Signed On 08-07-2021 9:10:14 EST by Allen Mendoza
== END 2021-08-07 07:30 | disposition home or self-care (01) ==
LOC: ED 03:06
DX: F20.9 Schizophrenia, unspecified (principal); I10 Essential (primary) hypertension; F31.9 Bipolar disorder, unspecified; Z98.890 Other specified postprocedural states; F17.200 Nicotine dependence, unspecified, uncomplicated; F12.90 Cannabis use, unspecified, uncomplicated
CPT/HCPCS: 36415; 80053; 80320; 85025; 93005; 93010; 99283; G0480

== ENCOUNTER 2021-08-08 08:11 | Emergency (ER) | payer MEDICARE ==
--- NOTE | 2021-08-08 09:33 | Emergency Department Report ---
ED Psych HPI - General Chief Complaint: Psych Stated Complaint: SI/HEARING VOICES/DEPRESSED Time Seen by Provider: 08/08/21 08:30 Source: patient, old records reviewed Mode of arrival: Ambulatory Limitations: No Limitations - History of Present Illness Initial Comments: 65-year male with a past medical history of hypertension, bipolar, schizophrenia, and polysubstance abuse presents to the hospital complaining of chronic psychosis, suicidal ideation, and requesting to be readmitted to [facility]. Patient apparently was recently at [facility] for 7 days up until 2 to 3 days ago. Patient left the facility with a approved pass but while running errands received word that his passed 2 weeks prior. This made him distraught and he did not return back to the [facility] as scheduled and therefore lost his spot. He has been homeless for last 3 3 days, he abusing crack cocaine and alcohol. He attempted to get back into [facility] however, was informed there were not any beds and also attempted to get into [facility] and was firm to come to the ER for medical clearance. Patient states he goes "in and out of" suicidal ideation and has a history of overdose attempt in the past. Patient was also seen here yesterday and endorse a plan of shooting himself and was subsequently discharged from the ED without mental health evaluation at that [facility]. - Related Data Previous Rx's Medication Instructions Recorded Last Taken Type Ibuprofen [Motrin] 800 mg PO Q8HR PRN #30 tablet 07/29/17 Unknown Rx Sodium Chloride [Saline Nasal 1 - 2 sprays NS PRN PRN #1 bottle 07/29/17 Unknown Rx [place]] diphenhydrAMINE [Benadryl CAP] 25 mg PO Q6HR PRN #30 capsule 07/29/17 Unknown Rx guaiFENesin/DEXTROMETHORPHAN 1 each PO BID #20 tab.er.12h 07/29/17 Unknown Rx [Mucinex Dm ER 1,200-60 mg Tab] Furosemide [Lasix TAB] 40 mg PO QDAY #30 tablet 08/29/17 Unknown Rx Clotrimazole 1% [Lotrimin 1%] 1 applic TP BID #1 tube 03/20/19 Unknown Rx Hydrocortisone [Hydrocortisone 1 applicatio TP TID 7 Days #1 03/20/19 Unknown Rx 2.5% OINT] oint...g. diphenhydrAMINE [Benadryl CAP] 50 mg PO Q8HR PRN #14 capsule 03/20/19 Unknown Rx Ibuprofen [Motrin] 800 mg PO Q8HR PRN #30 tablet 04/06/19 Unknown Rx Allergies Allergy/AdvReac Type Severity Reaction Status Date / Time No Known Allergies Allergy Verified 08/08/21 08:22 ED Review of Systems ROS: Stated complaint: SI/HEARING VOICES/DEPRESSED Other details as noted in HPI Comment: All other systems reviewed and negative Other: General: No acute distress Head: Atraumatic Eyes: normal appearance ENT: Moist mucous membranes Neck: Normal appearance, no midline tenderness Chest: Clear to auscultation bilaterally CV: Regular rate and rhythm Abdomen: Soft, normal bowel sounds, nontender, nondistended, no rebound or guarding Back: Normal inspection Extremity: Chronic bilateral lower extremity edema without leg asymmetry or calf tenderness Neuro: Alert O x 3, no facial asymmetry, speech clear, no gross motor sensory deficit Psych: Appropriate behavior Skin: No rash ED Past Medical Hx - Past Medical History Previous Medical History?: Yes Hx Hypertension: Yes Hx Psychiatric Treatment: Yes (depression, polysubstance abuse, SI) Additional medical history: Bipolar - Surgical History Additional Surgical History: RLE fracture - Social History Smoking Status: Current Every Day Smoker Substance Use Type: Alcohol, Cocaine, Marijuana - Medications Home Medications: Home Medications Medication Instructions Recorded Confirmed Last Taken Type Ibuprofen [Motrin] 800 mg PO Q8HR PRN #30 tablet 07/29/17 Unknown Rx Sodium Chloride [Saline Nasal 1 - 2 sprays NS PRN PRN #1 bottle 07/29/17 Unknown Rx [place]] diphenhydrAMINE [Benadryl CAP] 25 mg PO Q6HR PRN #30 capsule 07/29/17 Unknown Rx guaiFENesin/DEXTROMETHORPHAN 1 each PO BID #20 tab.er.12h 07/29/17 Unknown Rx [Mucinex Dm ER 1,200-60 mg Tab] Furosemide [Lasix TAB] 40 mg PO QDAY #30 tablet 08/29/17 Unknown Rx Clotrimazole 1% [Lotrimin 1%] 1 applic TP BID #1 tube 03/20/19 Unknown Rx Hydrocortisone [Hydrocortisone 1 applicatio TP TID 7 Days #1 03/20/19 Unknown Rx 2.5% OINT] oint...g. diphenhydrAMINE [Benadryl CAP] 50 mg PO Q8HR PRN #14 capsule 03/20/19 Unknown Rx Ibuprofen [Motrin] 800 mg PO Q8HR PRN #30 tablet 04/06/19 Unknown Rx ED Physical Exam - General Limitations: No Limitations ED Course Vital Signs 08/08/21 08/08/21 08:22 11:39 Temperature 98.3 F Pulse Rate 79 89 Respiratory 14 16 Rate Blood Pressure 141/79 [Left] Blood Pressure 140/78 [Right] O2 Sat by Pulse 99 98 Oximetry ED Medical Decision Making - Lab Data Result diagrams: 08/08/21 08:50 08/08/21 08:50 Lab Results 08/08/21 08/08/21 08/08/21 Range/Units 08:50 08:50 08:50 WBC 4.1 L (4.5-11.0) K/mm3 RBC 4.41 (3.65-5.03) M/mm3 Hgb 13.1 (11.8-15.2) gm/dl Hct 41.3 (35.5-45.6) % MCV 94 (84-94) fl MCH 30 (28-32) pg MCHC 32 (32-34) % RDW 14.3 (13.2-15.2) % Plt Count 226 (140-440) K/mm3 Lymph % (Auto) 29.7 (13.4-35.0) % Boundary % (Auto) 13.7 H (0.0-7.3) % Eos % (Auto) 9.1 H (0.0-4.3) % Baso % (Auto) 1.2 (0.0-1.8) % Lymph # (Auto) 1.2 (1.2-5.4) K/mm3 Boundary # (Auto) 0.6 (0.0-0.8) K/mm3 Eos # (Auto) 0.4 (0.0-0.4) K/mm3 Baso # (Auto) 0.0 (0.0-0.1) K/mm3 Seg Neutrophils % 46.3 (40.0-70.0) % Seg Neutrophils # 1.9 (1.8-7.7) K/mm3 Sodium 140 (137-145) mmol/L Potassium 3.8 (3.6-5.0) mmol/L Chloride 102.2 (98-107) mmol/L Carbon Dioxide 24 (22-30) mmol/L Anion Gap 18 mmol/L BUN 16 (9-20) mg/dL Creatinine 0.8 (0.8-1.3) mg/dL Estimated GFR > 60 ml/min BUN/Creatinine Ratio 20 % Glucose 127 H (75-100) mg/dL Calcium 9.4 (8.4-10.2) mg/dL Urine Color (Yellow) Urine Turbidity (Clear) Urine pH (5.0-7.0) Ur Specific [place]born (1.003-1.030) Urine Protein (Negative) mg/dL Urine Glucose (UA) (Negative) mg/dL Urine Ketones (Negative) mg/dL Urine Blood (Negative) Urine Nitrite (Negative) Urine Bilirubin (Negative) Urine Urobilinogen (<2.0) mg/dL Ur Leukocyte Esterase (Negative) Urine WBC (Auto) (0.0-6.0) /HPF Urine RBC (Auto) (0.0-6.0) /HPF U Epithel Cells (Auto) (0-13.0) /HPF Urine Mucus /HPF Salicylates < 0.3 L (2.8-20.0) mg/dL Urine Opiates Screen Urine Methadone Screen Acetaminophen (10.0-30.0) ug/mL Ur Barbiturates Screen Ur Phencyclidine Scrn Ur Amphetamines Screen U Benzodiazepines Scrn Urine Cocaine Screen U Marijuana (THC) Screen Drugs of Abuse Note Plasma/Serum Alcohol (0-0.07) % 08/08/21 08/08/21 08/08/21 Range/Units 08:50 08:50 Unknown WBC (4.5-11.0) K/mm3 RBC (3.65-5.03) M/mm3 Hgb (11.8-15.2) gm/dl Hct (35.5-45.6) % MCV (84-94) fl MCH (28-32) pg MCHC (32-34) % RDW (13.2-15.2) % Plt Count (140-440) K/mm3 Lymph % (Auto) (13.4-35.0) % Boundary % (Auto) (0.0-7.3) % Eos % (Auto) (0.0-4.3) % Baso % (Auto) (0.0-1.8) % Lymph # (Auto) (1.2-5.4) K/mm3 Boundary # (Auto) (0.0-0.8) K/mm3 Eos # (Auto) (0.0-0.4) K/mm3 Baso # (Auto) (0.0-0.1) K/mm3 Seg Neutrophils % (40.0-70.0) % Seg Neutrophils # (1.8-7.7) K/mm3 Sodium (137-145) mmol/L Potassium (3.6-5.0) mmol/L Chloride (98-107) mmol/L Carbon Dioxide (22-30) mmol/L Anion Gap mmol/L BUN (9-20) mg/dL Creatinine (0.8-1.3) mg/dL Estimated GFR ml/min BUN/Creatinine Ratio % Glucose (75-100) mg/dL Calcium (8.4-10.2) mg/dL Urine Color Yellow (Yellow) Urine Turbidity Clear (Clear) Urine pH 5.0 (5.0-7.0) Ur Specific [place]born 1.020 (1.003-1.030) Urine Protein <15 mg/dl (Negative) mg/dL Urine Glucose (UA) Neg (Negative) mg/dL Urine Ketones Neg (Negative) mg/dL Urine Blood Sm (Negative) Urine Nitrite Neg (Negative) Urine Bilirubin Neg (Negative) Urine Urobilinogen 4.0 (<2.0) mg/dL Ur Leukocyte Esterase Neg (Negative) Urine WBC (Auto) 1.0 (0.0-6.0) /HPF Urine RBC (Auto) 2.0 (0.0-6.0) /HPF U Epithel Cells (Auto) < 1.0 (0-13.0) /HPF Urine Mucus Few /HPF Salicylates (2.8-20.0) mg/dL Urine Opiates Screen Urine Methadone Screen Acetaminophen 5.0 L (10.0-30.0) ug/mL Ur Barbiturates Screen Ur Phencyclidine Scrn Ur Amphetamines Screen U Benzodiazepines Scrn Urine Cocaine Screen U Marijuana (THC) Screen Drugs of Abuse Note Plasma/Serum Alcohol < 0.01 (0-0.07) % 08/08/21 Range/Units Unknown WBC (4.5-11.0) K/mm3 RBC (3.65-5.03) M/mm3 Hgb (11.8-15.2) gm/dl Hct (35.5-45.6) % MCV (84-94) fl MCH (28-32) pg MCHC (32-34) % RDW (13.2-15.2) % Plt Count (140-440) K/mm3 Lymph % (Auto) (13.4-35.0) % Boundary % (Auto) (0.0-7.3) % Eos % (Auto) (0.0-4.3) % Baso % (Auto) (0.0-1.8) % Lymph # (Auto) (1.2-5.4) K/mm3 [place] # (Auto) (0.0-0.8) K/mm3 Eos # (Auto) (0.0-0.4) K/mm3 Baso # (Auto) (0.0-0.1) K/mm3 Seg Neutrophils % (40.0-70.0) % Seg Neutrophils # (1.8-7.7) K/mm3 Sodium (137-145) mmol/L Potassium (3.6-5.0) mmol/L Chloride (98-107) mmol/L Carbon Dioxide (22-30) mmol/L Anion Gap mmol/L BUN (9-20) mg/dL Creatinine (0.8-1.3) mg/dL Estimated GFR ml/min BUN/Creatinine Ratio % Glucose (75-100) mg/dL Calcium (8.4-10.2) mg/dL Urine Color (Yellow) Urine Turbidity (Clear) Urine pH (5.0-7.0) Ur Specific [place] (1.003-1.030) Urine Protein (Negative) mg/dL Urine Glucose (UA) (Negative) mg/dL Urine Ketones (Negative) mg/dL Urine Blood (Negative) Urine Nitrite (Negative) Urine Bilirubin (Negative) Urine Urobilinogen (<2.0) mg/dL Ur Leukocyte Esterase (Negative) Urine WBC (Auto) (0.0-6.0) /HPF Urine RBC (Auto) (0.0-6.0) /HPF U Epithel Cells (Auto) (0-13.0) /HPF Urine Mucus /HPF Salicylates (2.8-20.0) mg/dL Urine Opiates Screen Negative Urine Methadone Screen Negative Acetaminophen (10.0-30.0) ug/mL Ur Barbiturates Screen Negative Ur Phencyclidine Scrn Negative Ur Amphetamines Screen Negative U Benzodiazepines Scrn Negative Urine Cocaine Screen Positive U Marijuana (THC) Screen Negative Drugs of Abuse Note Disclamer Plasma/Serum Alcohol (0-0.07) % - Medical Decision Making 65-year-old male presents to the hospital with suicidal ideation, psychosis, medication noncompliance, and polysubstance abuse. 1013 at this time. Patient medically cleared and awaiting placement Critical Care Time: No Critical care attestation.: If time is entered above; I have spent that time in minutes in the direct care of this critically ill patient, excluding procedure time. ED Disposition Clinical Impression: Schizophrenia, Suicidal ideations, Cocaine abuse, Medical clearance for psychiatric admission Disposition: [address] [place] [address] Is pt being admited?: No Does the pt Need Aspirin: No Condition: Stable Referrals: PRIMARY CARE, [Primary Care Provider] - 3-5 Days
[2021-08-08 10:30] LABS: BUN/Creatinine Ratio 20; Blood Urea Nitrogen 16 mg/dL (9-20); Calcium 9.4 mg/dL (8.4-10.2); Hemolysis Index 7
[2021-08-08 10:40] LABS: Basophils % (Auto) 1.2 % (0.0-1.8); Eosinophils # (Auto) 0.4 K/mm3 (0.0-0.4); Eosinophils % (Auto) 9.1 % (0.0-4.3); Hematocrit 41.3 % (35.5-45.6); Hemoglobin 13.1 gm/dl (11.8-15.2); Lymphocytes # (Auto) 1.2 K/mm3 (1.2-5.4); Lymphocytes % (Auto) 29.7 % (13.4-35.0); Mean Corpuscular HGB Conc 32 % (32-34); Mean Corpuscular Volume 94 fl (84-94); Monocytes # (Auto) 0.6 K/mm3 (0.0-0.8); Monocytes % (Auto) 13.7 % (0.0-7.3); Platelet Count 226 K/mm3 (140-440); Red Blood Count 4.41 M/mm3 (3.65-5.03); Red Cell Distribution Width 14.3 % (13.2-15.2)
[2021-08-08 11:40] VITALS: BP 141/79
--- NOTE | 2021-08-08 11:46 | Consultation ---
History of Present Illness - Reason for Consult Consult date: 08/08/21 Reason for consult: psychosis - History of Present Psychiatric Illness The patient was seen today. He is a 65y/o male patient who presents with suicidal thoughts, depression, A/V hallucinations and reported drugs and alcohol use. His speech is difficult to understand. The patient says he lost his about three weeks ago. He says he did not go to the because no one could find him to inform him. He says "I'm augustin monge. Having a hard time." The patient endorses suicidal thoughts with a plan to overdose and "just go ahead on and leave." He says he is seeing bats flying and hearing his call his name. He says "she called my name 4 or 5 times last night. I kept looking ba ck for her." He says he uses crack cocaine. The patient also says he drinks abut 1/2 gal of liquor a day and about 1 6 pack of beer. PAST PSYCHIATRIC HISTORY: Diagnoses: schizophrenia Suicide attempts or Self-harm behavior: Yes Prior psychiatric hospitalizations: Yes Substance Abuse history: Alcohol, crack Previous psychiatric medications tried: could not recall Outpatient treatment: not currently PAST MEDICAL HISTORY: unknown Family Psychiatric History: None reported or documented SOCIAL HISTORY Marital Status: recently Living Arrangements: homeless Employment Status: Disabled Access to guns/weapons: Education: History of Abuse:Denies Legal History: Denies REVIEW OF SYSTEMS Constitutional: Negative for weight loss ENT: Negative for stridor Respiratory: Negative for cough or hemoptysis All other systems reviewed and are negative MENTAL STATUS EXAMINATION General Appearance and Behavior: Age appropriate, good hygiene, wearing appropriate clothes. shaky, cooperative Cooperation: Cooperative Psychomotor Behavior: Psychomotor normal Mood: shaky. depressed Affect and affective range: congruent with stated mood Thought Process: circumstantial Thought Content: Hallucinations, SI Speech: garbled Suicidal Ideation: Yes Homicidal Ideation: Denies Hallucinations: A/V Delusions: Denies Impulse Control: Limited Insight and Judgment: Limited insight and fair judgment Memory: Limited Attention: distracted Orientation: a/o x 3 Assessment (1) Schizophrenia (2) Polysubstabce abuse Current Visit: Yes Status: Acute Treatment Plan 1013 Zoloft 25mg po daily Risperidone 0.5mg po BID Vistaril 25mg po BID Trazodone 50mg po qhs Medical: per primary Disposition: Recommend acute psychiatric inpatient treatment Will follow. Thanks Case staffed with Dr. Chavez. Medications and Allergies Allergies Allergy/AdvReac Type Severity Reaction Status Date / Time No Known Allergies Allergy Verified 08/08/21 08:22 Home Medications Medication Instructions Recorded Confirmed Last Taken Type Ibuprofen [Motrin] 800 mg PO Q8HR PRN #30 tablet 07/29/17 Unknown Rx Sodium Chloride [Saline Nasal 1 - 2 sprays NS PRN PRN #1 bottle 07/29/17 Unknown Rx [place]] diphenhydrAMINE [Benadryl CAP] 25 mg PO Q6HR PRN #30 capsule 07/29/17 Unknown Rx guaiFENesin/DEXTROMETHORPHAN 1 each PO BID #20 tab.er.12h 07/29/17 Unknown Rx [Mucinex Dm ER 1,200-60 mg Tab] Furosemide [Lasix TAB] 40 mg PO QDAY #30 tablet 08/29/17 Unknown Rx Clotrimazole 1% [Lotrimin 1%] 1 applic TP BID #1 tube 03/20/19 Unknown Rx Hydrocortisone [Hydrocortisone 1 applicatio TP TID 7 Days #1 03/20/19 Unknown Rx 2.5% OINT] oint...g. diphenhydrAMINE [Benadryl CAP] 50 mg PO Q8HR PRN #14 capsule 03/20/19 Unknown Rx Ibuprofen [Motrin] 800 mg PO Q8HR PRN #30 tablet 04/06/19 Unknown Rx Mental Status Exam - Vital signs Last Vital Signs Temp 98.3 F 08/08/21 08:22 Pulse 79 08/08/21 08:22 Resp 14 08/08/21 08:22 BP 140/78 08/08/21 08:22 Pulse Ox 99 08/08/21 08:22 Results Result Diagrams: 08/08/21 08:50 08/08/21 08:50 Abnormal lab results 08/08/21 08/08/21 08/08/21 Range/Units 08:50 08:50 08:50 WBC 4.1 L (4.5-11.0) K/mm3 [place] % (Auto) 13.7 H (0.0-7.3) % Eos % (Auto) 9.1 H (0.0-4.3) % Glucose 127 H (75-100) mg/dL Salicylates < 0.3 L (2.8-20.0) mg/dL Acetaminophen (10.0-30.0) ug/mL 08/08/21 Range/Units 08:50 WBC (4.5-11.0) K/mm3 [place] % (Auto) (0.0-7.3) % Eos % (Auto) (0.0-4.3) % Glucose (75-100) mg/dL Salicylates (2.8-20.0) mg/dL Acetaminophen 5.0 L (10.0-30.0) ug/mL All other labs normal.
[2021-08-08] MEDS ORDERED: risperiDONE 0.25 MG TAB PO SCH (12:00)
[2021-08-08] MEDS ORDERED: SERTRALINE 25 MG TAB PO SCH (12:00)
[2021-08-08] MEDS ORDERED: hydrOXYzine PAMOATE 25 MG CAP PO SCH (12:00)
[2021-08-08 12:43] LABS: Bilirubin,Urine NEG (Negative); Blood,Urine SM (Negative); Color,Urine Yellow (Yellow); Mucus,Urine FEW /HPF; Protein,Urine <15 mg/dL mg/dL (Negative)
[2021-08-08 12:45] LABS: Amphetamine Screen,Urine Negative; Benzodiazepines Screen,Urine Negative; Cannabinoid Screen,Urine Negative; Methadone Screen,Urine Negative; Opiate Screen,Urine Negative
[2021-08-08 12:57] LABS: Cocaine Screen,Urine Positive
[2021-08-08] MEDS ORDERED: traZODone 50 MG TAB PO SCH (22:00)
== END 2021-08-09 01:31 ==
LOC: ED 08:11
DX: F20.9 Schizophrenia, unspecified (principal); R45.851 Suicidal ideations; F14.10 Cocaine abuse, uncomplicated; Z13.30 Encounter for screening examination for mental health and behavioral disorders, unspecified; I10 Essential (primary) hypertension; F31.9 Bipolar disorder, unspecified; Z98.890 Other specified postprocedural states; F17.200 Nicotine dependence, unspecified, uncomplicated; F12.90 Cannabis use, unspecified, uncomplicated; Z20.822 Contact with and (suspected) exposure to COVID-19
CPT/HCPCS: 36415; 80048; 80307; 81001; 85025; 99284; U0003; 80320; G0480